=== PATIENT | female | born 1980 | race Caucasian/White ===

== ENCOUNTER 2016-12-04 17:14 | Inpatient (IN) | payer OTHER ==
--- NOTE | ~2016-12-04 | US67 ---
[facility] A Service of [facility] & [facility] RADIOLOGY TEXT RESULTS PATIENT: IMELDA NELSON LOCATION: C2A 238-01 : 81 UNIT #: [id number] AGE: [address]: Get Sadler MD SEX: F ORDER DR: [id number] [facility] [address] [facility]. [place], [place] [address] [id number] MR#: [id number] Acc #: [id number] NAME: IMELDA NELSON : 1980 SEX: F STUDY DATE/TIME: 12/05/2016 8:09 UNIT: C2A ROOM: [facility] STUDY DESCRIPTION: US Gallbladder Attending Physician: Get Sadler M.D. Ordering Physician: Maria Alejandra Orozco M.D. MEDICAL IMAGING REPORT This report is preliminary unless electronic signature is present EXAM Gallbladder ultrasound 12/05/2016 INDICATIONS Right upper quadrant pain for a few months worsening symptoms, hypertension. No relevant surgical history. TECHNIQUE Sonographic imaging right upper quadrant was performed. Correlation is made with CT 12/04/2016. FINDINGS The pancreas was obscured by bowel gas and not seen or evaluated. Survey images of the liver demonstrate no focal mass or intrahepatic ductal dilatation or ascites. Liver measures 18.6 cm long axis. Portions of the liver were obscured by an inadequate sonographic window. Right kidney nonobstructed, measuring 12.3 cm long axis. The gallbladder demonstrates a wall echo shadow complex most characteristic of a gallbladder filled with stones. No sonographic Perez's sign was described by the technologist. The gallbladder wall is not well visualized or assessed given the wall echo shadow complex but demonstrated wall thickening on CT 12/04/2016 and in the setting of right upper quadrant pain the constellation of findings on imaging is most characteristic of acute cholecystitis until proven otherwise. Extrahepatic common bile duct measures about 5 mm. IMPRESSION 1. Wall echo shadow complex most characteristic of a gallbladder filled with stones. In the setting of right upper quadrant pain and abnormal CT findings demonstrating wall thickening of the gallbladder these findings are most characteristic of acute cholecystitis until proven otherwise. [facility] A Service of [facility] & [facility] RADIOLOGY TEXT RESULTS PATIENT: IMELDA NELSON LOCATION: [facility] 238-01 : 81 UNIT #: [id number] AGE: [address]: Get Sadler MD SEX: F ORDER DR: 2. No intra or extrahepatic biliary ductal dilatation. 3. Pancreas not well visualized or assessed. Dictated by... Kiel Jasso M.D. THIS IS AN ELECTRONICALLY VERIFIED REPORT Kiel Jasso M.D. at 12/05/2016 1:12 PM Jose TD: 12/05/2016 08:53 JOB #: [id number] MEDICAL IMAGING REPORT COPY
--- NOTE | ~2016-12-04 | OR ---
Unit #: [id number] #: [id number] Patient: IMELDA NELSON [id number] [address] [place], [place] [address] [id number] I MR#: [id number] NAME: IMELDA NELSON ROOM: 238 Date of Procedure: 12/07/2016 Admission Date: 12/05/2016 Surgeon: Kimani Garrison M.D. : 1980 Attending Physician: Get Sadler M.D. Primary Care Physician: Primary Care Physician No OPERATIVE REPORT PRIMARY CARE PHYSICIAN Maria Alejandra Orozco M.D. and Get Sadler M.D. PREOPERATIVE DIAGNOSES The patient presented with history of abnormal LFTs and upper abdominal pain. PROCEDURE PERFORMED Upper gastrointestinal endoscopy. POSTOPERATIVE DIAGNOSES The entire stomach and duodenal bulb were packed with solid food from top to bottom. The fact that the patient was intubated is important. The underlying mucosa and the stomach therefore could not be examined. The duodenal bulb, second, and third part of duodenum however normal as was well as esophagus. RECOMMENDATIONS The patient will be proceeded with an ERCP provided we get visibility of the ampullary area and not obscured by food. SEDATION General anesthesia. DESCRIPTION OF PROCEDURE Following detailed explanation of the potential risks and complications of an upper endoscopy, namely perforation, bleeding, and complication related to sedation, the patient was brought to the main OR and laid in the left semiprone position. Lubricated tip of the Olympus video upper endoscope was passed through the bite block into the proximal esophagus under direct vision. The entire esophageal mucosa was examined and appeared normal. Z-line was nicely demarcated, there being no esophagitis or hiatus hernia. The scope was then advanced into the gastric cavity and the latter was insufflated. Mucosa of the fundus, body, and antrum was examined. The patient was noted to have large amount of solid food bezoar filling the entire stomach. Pylorus was intubated with visualization of the duodenal bulb and second and third part of duodenum. The food bezoar extended into the duodenal bulb and second part of duodenum. Underlying minimal mucosa that was examined was normal. The scope was then withdrawn in the gastric cavity and on retroflexion, extensive bezoar was seen. The scope was then withdrawn in the distal esophagus. The entire esophageal mucosa was examined all the way up to pharynx. No additional findings were noted. Unit #: [id number] #: [id number] Patient: IMELDA NELSON Dictated by... Ho Bautista/alfred TD: 12/07/2016 12:11 JOB #: [id number] CC: Get Sadler M.D. OPERATIVE REPORT X Kimani Garrison MD X PROCEDURE OPERATIVE NOTE
--- NOTE | ~2016-12-04 | CR84 ---
[facility] A Service of [facility] & [facility] RADIOLOGY TEXT RESULTS PATIENT: IMEDLA NELSON LOCATION: A 238-01 : 81 UNIT #: [id number] AGE: [address]: Get Sadler MD SEX: F ORDER DR: [id number] [facility] [address] [facility]. [place], [place] [address] [id number] I MR#: [id number] #: [id number] NAME: IMELDA NELSON : 1980 SEX: F STUDY DATE/TIME: 12/07/2016 9:50 UNIT: [facility] ROOM: [facility] STUDY DESCRIPTION: CR ERCP Biliary and Pancr SI Attending Physician: Get Sadler M.D. Ordering Physician: Kimani Garrison M.D. Primary Care Physician: Primary Care Physician No MEDICAL IMAGING REPORT This report is preliminary unless electronic signature is present EXAM ERCP interpretation only INDICATIONS 36-year-old female with history of cholecystitis and cholelithiasis. FINDINGS Fluoro time was 1.16 minutes. 9 images were submitted. The study demonstrates injection of the common bile duct. A balloon sweeping was performed. A sphincterotomy was also performed. Please refer to ERCP report for complete detail. Dictated by... Frederick Elias M.D. THIS IS AN ELECTRONICALLY VERIFIED REPORT Frederick Elias M.D. at 12/08/2016 7:41 AM ARS/psc TD: 12/07/2016 17:09 JOB #: [id number] MEDICAL IMAGING REPORT COPY
--- NOTE | ~2016-12-04 | CO ---
Unit #: [id number] #: [id number] Patient: IMELDA NELSON [id number] [address] [address] [id number] I MR#: [id number] NAME: IMELDA NELSON ROOM: 238 Age: 36 Sex: F Admission Date: 12/04/2016 : 1980 Attending Physician: Get Sadler M.D. Primary Care Physician: No Primary Care Physician Consultation Date: 12/05/2016 CONSULTATION REPORT HISTORY OF PRESENT ILLNESS Ms. Nelson is a 36-year-old white female with jaundice and midepigastric/right upper quadrant pain radiating to her back. She had a CT scan, which showed questionable acute cholecystitis but no stones and no dilated ducts, but her bilirubin was 15 along with other elevated liver function test. There was no ductal dilatation. An ultrasound is pending. She has also obtained a consultation for GI medicine doctors. 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 She has a history of hypertension, seizure disorder, psychiatric history. She has had substance abuse in the past. She has had previous tubal ligation, hernia repair. MEDICATIONS Listed per nurses' notes. ALLERGIES Sulfa and cephalosporins. SOCIAL HISTORY She is a 9-pdzw-yhr-day smoker and does drink alcohol. PHYSICAL EXAMINATION GENERAL: Cooperative, alert white female. No real acute distress. ENT: Jaundice. CHEST: Clear to auscultation and percussion. CARDIAC: The rhythm is regular. ABDOMEN: Soft. No real tenderness. No significant peritoneal signs at present. No distention. IMPRESSION This patient most likely has some type of hepatitis or liver failure reaction. She could have occult malignancy. I do not believe she has gallstone jaundice. We will follow her very closely. She does hot need gallbladder surgery at present. Dictated by... Ho Mathews/tamara Unit #: [id number] #: [id number] Patient: IMELDA NELSON TD: 12/05/2016 12:34 JOB #: [id number] CONSULTATION REPORT X Moe Jenkins MD CONSULTATION REPORT
--- NOTE | ~2016-12-04 | OR ---
Unit #: [id number] #: [id number] Patient: IMELDA NELSON [id number] [address] [place], [place] [address] [id number] I MR#: [id number] NAME: IMELDA NELSON ROOM: 238 Date of Procedure: 12/07/2016 Admission Date: 12/05/2016 Surgeon: Kimani Garrison M.D. : 1980 Attending Physician: Get Sadler M.D. OPERATIVE REPORT PREOPERATIVE DIAGNOSES The patient presented with a history of elevated LFTs and overall picture consistent with acute hepatitis. She does take multitude of psychotropic medications for depression and anxiety from her psychiatrist. In addition, she is on methadone. The purpose of the procedure is to look for any common bile duct stones as the picture is somewhat complicated. It is noteworthy she does not have any biliary ductal dilation and does have cholelithiasis and changes of cholecystitis suggested by CAT scan and ultrasound. HIDA scan in this situation is useless, because of the abnormal LFTs. PROCEDURES PERFORMED Endoscopic retrograde cholangiopancreatography and sphincterotomy. POSTOPERATIVE DIAGNOSES 1. The patient had food bezoar filling up the entire stomach. This is most likely related to underlying her medications that include multitude of psychotropic medications that will delay the gastric emptying including methadone. 2. The common bile duct was however normal 5 mm in size throughout. After a limited sphincterotomy, the duct was swept with a 9- to -12 mm retrieval balloon multiple times at 9 and 10 mm pressures. The cystic duct could not be opacified on occlusion cholangiogram and therefore one cannot comment on the cystic duct and gallbladder based upon the study. 3. No attempt was made to cannulate the pancreatic duct. RECOMMENDATIONS 1. The patient does have cholelithiasis and upper abdominal pain. This could be from a combination of gallbladder pain as well as pain from gastroparesis. 2. If the laparoscopic cholecystectomy is planned tomorrow, suggest obtaining a liver biopsy at the same time. 3. I strongly feel that the patient's underlying problem does seem to be acute hepatitis whether it is percutaneous or drug induced, it is hard to pinpoint as the studies are still pending. SEDATION Used general anesthesia in the main OR. DESCRIPTION OF PROCEDURE Following detailed explanation of potential risks and complications of an ERCP, namely perforation, bleeding, complication related to sedation, and Unit #: [id number] #: [id number] Patient: IMELDA NELSON pancreatitis, the patient was laid in left semiprone position. A lateral-viewing duodenoscope was advanced through the oral cavity into the esophagus and advanced into the stomach. It is noteworthy that the patient did have stomach full of lot of solid food, but she was intubated with secured airway. Pylorus was intubated with visualization of the normal duodenal bulb and second and third part of the duodenum. Upon shortening the scope, major papilla and ampullary was visualized en face. Using sphincterotome and guidewire based technique, common bile duct was cannulated easily and the contrast cholangiogram was obtained, which showed normal bile duct about 5 mm in size throughout; however, cystic duct could not be opacified on cholangiogram. We then did a limited sphincterotomy. The duct was swept with a 9 and 10 mm retrieval balloon multiple times. The occlusion cholangiogram did not opacify the cystic duct or the gallbladder. No stones or debris were seen or delivered. The scope and the accessories were then withdrawn. The patient returned to the recovery area. She tolerated the procedure without any postprocedure complications. Dictated by... Ho Bautista/alfred TD: 12/07/2016 12:27 JOB #: [id number] Moe Jenkins M.D. OPERATIVE REPORT X Kimani Garrison MD X PROCEDURE OPERATIVE NOTE
--- NOTE | ~2016-12-04 | HP ---
Unit #: [id number] #: [id number] Patient: IMELDA NELSON [id number] [address] [place], [place] [address] [id number] I MR#: [id number] NAME: IMELDA NELSON ROOM: 238 Age: 36 Sex: F Admission Date: 12/04/2016 : 1980 Attending Physician: Maria Alejandra rOozco M.D. Primary Care Physician: No Primary Care Physician HISTORY AND PHYSICAL CHIEF COMPLAINT Painful jaundice. HISTORY OF PRESENT ILLNESS This pleasant, 36-year-old female with migraines, bipolar disorder, who is in the methadone clinic, was transferred from [facility] for painful jaundice. The patient states that two weeks ago she began to experience nausea along with sensation of acid reflux. The patient had an episode of fairly severe epigastric pain radiating to her back last week. The patient has also noted increasing upper abdominal discomfort with pale stools and dark urine. The patient developed a temperature of 102.3 a few days ago for which she took Tylenol. Yesterday, her family noticed that she was jaundiced. She went to [facility] emergency department where she was found to have a bilirubin of 14.8. Alkaline phosphatase was 418. However, AST and ALT were also significantly elevated. The patient denies history of liver disease or any injectable drug use in the past. He has not been taking a lot of Tylenol. A CT scan was performed which was consistent with cholecystitis but without definite gallstones seen. In the ER, she was treated with IV fluids, Zofran, lactulose, Levaquin and Flagyl, referred for admission. On examination, she is fairly tender in the right upper quadrant. PAST MEDICAL HISTORY 1. Migraine headaches. 2. PTSD and anxiety along with bipolar disorder. 3. Hypertension. 4. Previous opiate addiction now in the methadone clinic. However, the patient denies ever using injectable drugs. 5. BTL. 6. Hernia repair. SOCIAL HISTORY The patient is living with her mother. She smokes about a pack per day of tobacco. She does not drink alcohol except on a rare basis. FAMILY HISTORY Negative for liver or gallbladder disease. ALLERGIES Sulfa and Keflex, although the patient states that she is able to take penicillin. Unit #: [id number] #: [id number] Patient: IMELDA NESLON HOME MEDICATIONS 1. Cymbalta 60 mg daily. 2. Elavil 50 mg q.h.s. 3. Neurontin 600 mg t.i.d. 4. Clonidine 0.1 mg daily. 5. Klonopin 1 mg q.i.d. 6. Methadone 70 mg at noon every day. REVIEW OF SYSTEMS Notable for abdominal pain, nausea, acid reflux, feeling unwell, recent fever, migraines, psychiatric problems as dictated above, hypertension, above-mentioned surgeries, tobacco abuse. All other systems were reviewed and otherwise negative. PHYSICAL EXAMINATION GENERAL APPEARANCE: A pleasant, 36-year-old female who currently is in no acute distress. She does appear to be deeply jaundiced. She is afebrile. Pulse 74. Respirations 16. Blood pressure 121/67. HEENT: Eyes: PERRLA. Extraocular muscles are intact. Scleral icterus is noted. Pharynx is benign. NECK: Supple without adenopathy or thyromegaly. CHEST: Clear. CARDIAC: Normal S1, S2 without S3, S4 or murmur. ABDOMEN: Bowel sounds are present. The patient is most tender in the right upper quadrant. No rebound, guarding. No hepatosplenomegaly or masses. EXTREMITIES: Without edema. Pedal pulses are present. NEUROLOGIC: The patient is awake, alert, oriented. Cranial nerves are intact. Equal strength throughout. DIAGNOSTIC STUDIES LABORATORY: Hematocrit 43.8, normal white count and platelet count. INR is 1.3. SMA-12: Bilirubin 14.8, AST 1,800, ALT 600, alkaline phosphatase 400. Normal lipase. Ammonia level 61. Acetaminophen, salicylate level negligible. Hepatitis profile is pending. Urinalysis unremarkable. Urine tox screen positive for TCA, benzodiazepine and methadone, which are prescribed. Also positive for THC. IMAGING: CT scan of the abdomen shows cholelithiasis. ASSESSMENT 1. Painful jaundice. Likely, this represents a common bile duct stone and cholecystitis. However, AST and ALT are out of proportion to what I usually see for obstructive jaundice. Rule out additional hepatitis. 2. Previous history of opiate abuse. The patient is currently in the methadone clinic. She denies any injectable drug use in the past. 3. Hypertension. 4. Bipolar disorder, anxiety and depression. 5. Migraine headaches. PLAN 1. Gallbladder ultrasound. 2. Zosyn. 3. IV fluids and supportive treatment. 4. Hepatitis profile is pending. 5. GI and Surgical consultation. 6. SCDs for DVT prophylaxis. Unit #: [id number] #: [id number] Patient: IMELDA NELSON Dictated by Maria Alejandra Orozco M.D. AML/bd TD: 12/05/2016 05:59 JOB #: [id number] HISTORY AND PHYSICAL X Maria Alejandra Orozco MD X HISTORY AND PHYSICAL
--- NOTE | ~2016-12-04 | DS ---
Unit #: [id number] #: [id number] Patient: IMELDA NELSON [id number] [address] [place], [place] [address] [id number] I MR#: [id number] NAME: IMELDA NELSON ROOM: 238 Age: 36 Sex: F Admission Date: 12/05/2016 : 1980 Discharge Date: 12/10/2016 Attending Physician: Get Sadler M.D. Primary Care Physician: Primary Care Physician No DISCHARGE SUMMARY This is Nasreen Triana PA-C dictating for Dr. Get Sadler. CONSULTANTS Dr. Garrison with [facility], Dr. Yeboah, and Dr. Mahmood. PROCEDURES None. DISCHARGE DIAGNOSIS Drug seeking behavior. The patient was seen DIAGNOSTIC STUDIES IMAGING STUDIES: Consist of CT of abdomen and pelvis on 12/04/2016, impression, findings consistent with acute cholecystitis. No definite gallstones or biliary ductal dilation is seen. Gallbladder ultrasound on 12/05/2016, findings, syic-lyfx-cxekin complex most characteristic of gallbladder filled with stones in the setting of right upper quadrant pain and abnormal CT findings demonstrating wall thickening of the gallbladder. These findings are most characteristic of acute cholecystitis no intra or extrahepatic biliary ductal dilation. pancreas is not well visualized or assessed. ERCP was done by Dr. Garrison on 12/07/2016. Please refer to his full dictated report. LABORATORY RESULTS: On the day of discharge, the patient's lab include a BMP with glucose of 109, BUN 5, sodium 134, potassium 5.4, chloride 99, CO2 of 33, calcium is 9.0, total protein was 6.0, albumin was 2.9, total bilirubin 3.6, this has been trending down. She came in at 9.5, then trended down to 6.4 to 4.1 and today is 3.6. Her liver enzymes, her AST came in at 427 and continue to trend down to 209. Today was 124. ALT trending down as well, it came in at 418 and down to 258 and down to 190, and today was at 115. CBC with WBC of 7.2, RBC 4.78, hemoglobin 13.3, hematocrit 42.6, MCV is 89.2, MCH is 20.5, MCHC is 31.9, RDW is 16.7, platelets 310, MPV is 9.1. The patient did have blood culture with no growth at this time. In summary, the patient did have food stomach likely due to her psychotropic medications, which causes delay of the gastric emptying including methadone. The common bile duct however is normal in size measuring 55 mm and normal throughout. A sphincterotomy was done by Dr. He felt that the patient's overall symptoms likely due to acute hepatitis that is undetermined at this point. Unit #: [id number] #: [id number] Patient: IMELDA ENLSON PHYSICAL EXAMINATION GENERAL APPEARANCE: This is a 36-year-old female, who was at the bedside, in no apparent distress. VITAL SIGNS: Temperature of 97.8, pulse of 56, respiratory rate of 18, blood pressure 139/93, the patient was oxygenating while on room air. EYES: Extraocular motions were intact. Pupils were equally reactive to light and accommodation. Icterus was noted. . NECK: Supple without adenopathy or thyromegaly. CHEST: Clear to auscultation bilaterally. CARDIAC: Normal S1, S2 without S3, S4, or murmur. ABDOMEN: Bowel sound present. Soft, nontender, nondistended. No rebound. No guarding. No hepatosplenomegaly or masses appreciated. EXTREMITIES: Without edema. Pedal pulses are present. HOSPITAL COURSE The patient is a 36-year-old female with past medical history of migraine, bipolar disorder, chronic pain seen at the methadone clinic and was transferred from [facility] for painful jaundice. She states that 2 weeks prior to hospitalization, she began to experience some nausea as well as sensation of acid reflux. The patient had episode severe epigastric pain radiating to her back with prior to hospitalization, she was also noted to have increasing upper abdominal discomfort with pale stools and dark urine. The patient developed temperature of 102.3. yesterday family noticed she had jaundice and brought her to the [facility] Department where she was found to have bilirubin of 14.8 and alkaline phosphatase was 418. However, AST and ALT were also significantly elevated. The patient had denied history of liver disease or any injectable drug use in the past. She has not been taking a lot of Tylenol. A CT was performed, which was consistent with cholecystitis, but without definite gallstones seen in the emergency department. She was treated with IV fluids, Zofran, lactulose, Levaquin, Flagyl, and was admitted to [facility]. With regard to painful jaundice, we had ordered an acute hepatitis panel, which is still pending at this time. She was seen in consultation with Gastroenterology and General Surgery, who was treated with conservative management at first, but due to her persistent pain, bladder ultrasound was done with findings stated above. An ERCP was done by Dr. Garrison with findings as stated above. Again, please refer to his full dictated summary for full details. She was seen in consultation with Surgery on the day of assessment, it was felt that the patient had incidental gallstones and likely most of her problems are with the hepatitis possibly acute hepatitis and did not felt that laparoscopic cholecystectomy was needed at this time. She will follow up with surgery outpatient for any further needs. DISCHARGE CONDITION Stable. DISCHARGE FOLLOWUP The patient is to follow up with surgery with next week for further recommendations. Follow up with primary care physician within 1 to 2 weeks. DISCHARGE MEDICATIONS Include gabapentin to resume her home usage as stated 600 mg orally t.i.d., amitriptyline 50 mg orally at bedtime, Cymbalta 60 mg orally daily, Ambien 5 mg orally at bedtime, nicotine 21 mg transdermally Unit #: [id number] #: [id number] Patient: IMELDA NELSON iyvw-hqd-wwgnzdw, Klonopin 1 mg orally every 6 hours as needed for anxiety, clonidine 0.1 mg patch daily, methadone she again will go back methadone clinic to continue to receive her methadone there, Levaquin 750 mg orally for the next 5 days. Dictated by... FRANDY Bertrand M.D. TP/alfred TD: 12/12/2016 01:01 JOB #: [id number] DISCHARGE SUMMARY X X DISCHARGE SUMMARY
--- NOTE | ~2016-12-04 | CO ---
Unit #: [id number] #: [id number] Patient: IMELDA NELSON [id number] [address] [place], [place] [address] [id number] I MR#: [id number] NAME: IMELDA NELSON ROOM: 238 Age: 36 Sex: F Admission Date: 12/05/2016 : 1980 Attending Physician: Get Sadler M.D. Consultation Date: 12/05/2016 CONSULTATION REPORT REASON FOR CONSULTATION Possible hepatitis, abnormal LFTs. HISTORY OF PRESENT ILLNESS Ms. Sung is a 36-year-old white female who has been admitted with jaundice and right upper quadrant and epigastric pain. The patient was found to have a bilirubin of 15 on admission. She denies any history of intravenous drug use, but says she used heroin in the past. There is no history of any weight loss, fever, chills, or rigors. PAST MEDICAL HISTORY Significant for hypertension, seizure disorder, psychiatric history of substance abuse and she is currently on methadone. She has been on methadone in the recent past. PAST SURGICAL HISTORY Included tubal ligation and herniorrhaphy. ALLERGIES Allergic to sulfonamides and cephalosporins. MEDICATIONS These include Cymbalta, Elavil, Neurontin, clonidine, and methadone. FAMILY HISTORY No family history of colon, pancreatic cancer, or liver disease. SOCIAL HISTORY Lives at home with her mother. Smokes a pack of cigarettes a day. Does not drink alcohol except rarely. REVIEW OF SYSTEMS Detailed review of organ systems does not reveal any recent weight loss. No history of fever, chills, or rigors. No history of headache, seizures, chest pain, or syncope. No history of cough, expectoration, or hemoptysis. No history of dysuria, hematuria, or pyuria. No history of focal seizures or extremity weakness. No history of skin rash, aphthous ulcers in the mouth, or reactive arthritis. Rest of review of the organ systems is unremarkable. PHYSICAL EXAMINATION GENERAL: She is comfortable, alert, and oriented; however, she does appear to particularly have slurred speech at the present time. She is eating a substantial meal. Unit #: [id number] #: [id number] Patient: IMELDA NELSON VITAL SIGNS: Stable with a temperature of 97.4, pulse 60 per minute and regular, respiratory rate 16, blood pressure is 104/61. She weighs 160 pounds. She is close to her baseline weight. HEENT: She has no pallor. There is obvious icterus. No lymphadenopathy or peripheral edema. CARDIOVASCULAR: Normal heart sounds. No murmurs on auscultation. LUNGS: Reveal normal breath sounds. Good air entry. ABDOMEN: Soft, there being no area of localized tenderness, rigidity, rebound, or guarding. The patient does have palpable liver about 4 cm below the right costal margin, firm, smooth and nontender. Bowel sounds normal. Hernia sites normal. DIAGNOSTIC STUDIES LABORATORY RESULTS: Shows an unremarkable CBC. INR is 1.2. Serum chemistry shows a BUN and creatinine of 9 and 0.3. Normal electrolytes. Bilirubin of 14.8. Peak AST, ALT, and alkaline phosphatase of 1800, 620, and 418 respectively. Ammonia 61. CLINICAL IMPRESSION The differential diagnosis here includes infectious hepatitis such as hepatitis B and C as well as autoimmune hepatitis. MANAGEMENT PLAN We will order antinuclear antibody, smooth muscle antibody as well as IgM antibodies against Meryl-Mandel virus, herpes simplex virus, and CMV. The results of these need to be followed up in the intermediary clinic at [facility] or at [facility]. The patient is to be discharged from GI standpoint as it will take 4 to 5 days to get these results back. The above plan discussed with the patient. She was reassured. Thank you for asking me to see this pleasant patient. I appreciate the consult. Dictated by... Ho Bautista/alfred TD: 12/06/2016 06:00 JOB #: [id number] CC: Moe Jenkins M.D. CONSULTATION REPORT X Kimani Garrison MD CONSULTATION REPORT
--- NOTE | ~2016-12-04 | CT2 ---
[facility] A Service of [facility] RADIOLOGY TEXT RESULTS PATIENT: IMELDA NELSON LOCATION: C2A 238- : 81 UNIT #: [id number] AGE: [address]: Get Sadler MD SEX: F ORDER DR: [id number] [address] [address] [id number] I MR#: [id number] Acc #: [id number] NAME: IMELDA NELSON : 1980 SEX: F STUDY DATE/TIME: 12/04/2016 18:06 UNIT: SEDOF ROOM: [id number] STUDY DESCRIPTION: CT Abd and Pelv W Cont Attending Physician: Maria Alejandra Orozco M.D. Ordering Physician: Physician Non-Staff Primary Care Physician: No Primary Care Physician MEDICAL IMAGING REPORT This report is preliminary unless electronic signature is present. EXAMINATION CT abdomen and pelvis with contrast. DATE 12/04/2016 HISTORY Possible jaundice. Abdominal tenderness greatest in the right upper quadrant for a few months with nausea today. Inability to eat. Abnormal liver function tests. COMPARISON CT abdomen and pelvis with contrast 10/02/2015. PROCEDURE 5 mL axial images through the abdomen and pelvis after intravenous contrast administration. Enteric contrast was not administered. This CT exam was performed with one or more of the following radiation dose reduction techniques: automatic exposure control, adjustment of mA and/or kV according to patient size, and iterative reconstruction. FINDINGS There is abnormal gallbladder wall thickening and fluid surrounding the gallbladder consistent with acute cholecystitis. No definite gallstones are seen on this examination. No abnormal intrahepatic or extrahepatic biliary ductal dilation is identified. The liver, spleen, pancreas, adrenals and kidneys are within normal limits. Signs of ventral abdominal hernia repair without hernia recurrence. The appendix appears normal. PELVIS FINDINGS: Bilateral tubal ligation clips in place. Urinary bladder and rectum are normal. Tampon is in place within the vagina. [facility] A Service of [facility] RADIOLOGY TEXT RESULTS PATIENT: IMELDA NELSON LOCATION: [place] - : 81 UNIT #: [id number] AGE: [address]: Get Sadler MD SEX: F ORDER DR: Osseous structures are normal. IMPRESSION Findings consistent with acute cholecystitis. No definite gallstones or biliary ductal dilation is seen. Dictated by... Dalia Martines M.D. THIS IS AN ELECTRONICALLY VERIFIED REPORT Dalia Martines M.D. at 12/05/2016 10:07 PM JUAN JOSE/jose TD: 12/05/2016 07:10 JOB #: [id number] MEDICAL IMAGING REPORT
[2016-12-04 16:58] LABS: BASOPHIL# 0.1 X10e3 (0-0.3); BASOPHIL% 0.8 % (0-2.5); EOSINOPHIL# 0.3 X10e3 (0-0.7); EOSINOPHIL% 3.5 % (0.0-7.0); HEMATOCRIT 43.8 % (35.0-45.0); HEMOGLOBIN 14.6 gm/dL (12.0-16.0); LYMPHOCYTE# 2.5 X10e3 (1.0-3.5); LYMPHOCYTE% 29.6 % (17.0-45.0); MEAN CELL VOLUME 87.9 FL (83-96); MEAN CORPUSCULAR HEMOGLOBIN 29.4 PG (28-34); MEAN CORPUSCULAR HGB CONC 33.5 g/dL (30-36); MEAN PLATELET VOLUME 8.9 FL (6.5-11.5); MONOCYTE% 11.5 % (3.0-12.0); NEUTROPHIL# 4.5 X10e3 (1.5-7.1); NEUTROPHIL% 54.6 % (40-75); PLATELET COUNT 292 X10e3 (140-420); RED BLOOD COUNT 4.98 X10e (3.90-5.30); RED CELL DISTRIBUTION WIDTH 16.1 % (11.0-15.5); WHITE BLOOD COUNT 8.3 X10e3 (4.0-10.5)
[2016-12-04 17:04] LABS: URINE SOURCE CLEAN CATCH
[2016-12-04 17:08] LABS: URINE APPEARANCE CLEAR; URINE BILIRUBIN POS (NEG); URINE BLOOD TRACE-INTACT (NEG); URINE COLOR YELLOW; URINE GLUCOSE NEG (NORM); URINE KETONE NEG (NEG); URINE LEUKOCYTE ESTERASE NEG (NEG); URINE NITRATE NEG (NEG); URINE PROTEIN NEG (NEG); URINE UROBILINOGEN 0.2 MG/DL (NORM)
[2016-12-04 17:12] LABS: INR 1.3; PROTHROMBIN TIME (PATIENT) 14.9 SECONDS (9.5-12.4)
[~2016-12-04 17:14] MED LIST: ALPRAZOLAM PO; ALPRAZOLAM1 MG PO; AMBIEN PO; AMBIEN10 MG PO; AMITRYPTYLINE PO; CLEOCIN PO; CLONIDINE PO; CYMBALTA PO; CYMBALTA30 MG PO; DULOXETINE HCL60 MG PO; FLEXERIL PO; KEFLEX PO; KETOPROFEN PO; KLONOPIN PO; LORTAB 10/500 T1 TAB; METHADONE PO; NEURONTIN100 MG PO; SEROQUEL PO; VICODIN 5/1 TAB 5/50 PO; VICODIN 5/500 T1 TAB PO
[2016-12-04 17:17] LABS: AMPHETAMINE NEG (NEG); BARBITURATES NEG (NEG); BENZODIAZEPINES POS (NEG); COCAINE NEG (NEG); MARIJUANA POS (NEG); OPIATES NEG (NEG); TRICYCLIC ANTIDEPRESSANTS POS (NEG); U METHADONE POS (NEG)
[2016-12-04 17:20] LABS: DIFF IND NO
[2016-12-04 17:44] LABS: ALBUMIN SERUM 3.7 g/dL (3.5-5.0); ALKALINE PHOSPHATASE 418 U/L (32-92); ALT (SGPT) 620 U/L (10-40); AST (SGOT) 1816 U/L (10-42); BILIRUBIN,TOTAL 14.8 mg/dL (0.2-2.0); BLOOD UREA NITROGEN 9 mg/dL (9-23); CALCIUM SERUM 8.8 mg/dL (8.4-10.2); CARBON DIOXIDE 26 mmol/L (22-31); CHLORIDE 101 mmol/L (100-111); CREATININE SERUM <0.3 mg/dL (0.6-1.4); GLOM FILT RATE Estimated ABOVE60 mL/min (>60); GLUCOSE FASTING 84 mg/dL (70-110); LIPASE 28 U/L (22-51); POTASSIUM 3.9 mmol/L (3.5-5.1); PROTEIN TOTAL SERUM 7.5 g/dL (6.0-8.3); SODIUM 135 mmol/L (135-145)
[2016-12-04 17:47] LABS: MICRO INDICATED? YES
[2016-12-04 17:53] LABS: URINE RBC 0-2 /[HPF] (0-2); URINE WBC 0-2 /[HPF] (0-5)
[2016-12-04 17:54] LABS: CULTURE INDICATED? NO; URINE BACTERIA NEG (NEG)
[2016-12-05 05:40] LABS: BASOPHIL# 0.1 X10e3 (0-0.3); BASOPHIL% 0.9 % (0-2.5); EOSINOPHIL# 0.4 X10e3 (0-0.7); EOSINOPHIL% 3.7 % (0.0-7.0); HEMATOCRIT 41.7 % (35.0-45.0); HEMOGLOBIN 13.6 gm/dL (12.0-16.0); LYMPHOCYTE# 2.7 X10e3 (1.0-3.5); MEAN CELL VOLUME 88.3 FL (83-96); MEAN CORPUSCULAR HEMOGLOBIN 28.7 PG (28-34); MEAN CORPUSCULAR HGB CONC 32.5 g/dL (30-36); MEAN PLATELET VOLUME 8.9 FL (6.5-11.5); MONOCYTE# 1.5 X10e3 (0-1.0); MONOCYTE% 15.4 % (3.0-12.0); NEUTROPHIL# 5.3 X10e3 (1.5-7.1); PLATELET COUNT 285 X10e3 (140-420); RED BLOOD COUNT 4.73 X10e (3.90-5.30); RED CELL DISTRIBUTION WIDTH 16.7 % (11.0-15.5)
[2016-12-05 06:10] LABS: INR 1.2; PARTIAL THROMBOPLASTIN TIME 36.4 SECONDS (23.5-31.3); PROTHROMBIN TIME (PATIENT) 12.7 SECONDS (9.6-11.5)
[2016-12-05 06:13] LABS: DIFF IND NO
[2016-12-05 06:49] LABS: ALBUMIN SERUM 3.4 g/dL (3.5-5.0); ALKALINE PHOSPHATASE 374 U/L (32-92); ALT (SGPT) 589 U/L (10-40); AST (SGOT) 1648 U/L (10-42); BILIRUBIN,TOTAL 14.5 mg/dL (0.2-2.0); BLOOD UREA NITROGEN 5 mg/dL (9-23); CALCIUM SERUM 8.7 mg/dL (8.4-10.2); CARBON DIOXIDE 29 mmol/L (22-31); CHLORIDE 99 mmol/L (100-111); GLUCOSE FASTING 88 mg/dL (70-110); PROTEIN TOTAL SERUM 6.6 g/dL (6.0-8.3); SODIUM 136 mmol/L (135-145)
[2016-12-05 06:50] LABS: BUN/CREATININE RATIO 16.66; CREATININE SERUM <0.3 mg/dL (0.6-1.4); GLOM FILT RATE Estimated ABOVE60 mL/min (>60)
[2016-12-06 05:42] LABS: HEMATOCRIT 42.3 % (35.0-45.0); HEMOGLOBIN 13.7 gm/dL (12.0-16.0); MEAN CELL VOLUME 89.2 FL (83-96); MEAN CORPUSCULAR HEMOGLOBIN 28.8 PG (28-34); MEAN CORPUSCULAR HGB CONC 32.3 g/dL (30-36); MEAN PLATELET VOLUME 9.2 FL (6.5-11.5); RED BLOOD COUNT 4.74 X10e (3.90-5.30); RED CELL DISTRIBUTION WIDTH 16.2 % (11.0-15.5); WHITE BLOOD COUNT 7.7 X10e3 (4.0-10.5)
[2016-12-06 05:54] LABS: INR 1.1
[2016-12-06 06:27] LABS: ALBUMIN SERUM 3.4 g/dL (3.5-5.0); ALKALINE PHOSPHATASE 345 U/L (32-92); ALT (SGPT) 573 U/L (10-40); AST (SGOT) 1888 U/L (10-42); BILIRUBIN,TOTAL 14.3 mg/dL (0.2-2.0); CALCIUM SERUM 8.7 mg/dL (8.4-10.2); CARBON DIOXIDE 30 mmol/L (22-31); CHLORIDE 101 mmol/L (100-111); CREATININE SERUM 0.3 mg/dL (0.6-1.4); GLOM FILT RATE Estimated ABOVE60 mL/min (>60); GLUCOSE FASTING 106 mg/dL (70-110); MAGNESIUM 1.8 mg/dL (1.6-3.0); POTASSIUM 4.3 mmol/L (3.5-5.1); PROTEIN TOTAL SERUM 6.8 g/dL (6.0-8.3); SODIUM 138 mmol/L (135-145)
[2016-12-06 06:28] LABS: BLOOD UREA NITROGEN <5 mg/dL (9-23); BUN/CREATININE RATIO 16.66
[2016-12-06 06:57] LABS: AMPHETAMINE NEG (NEG); BARBITURATES NEG (NEG); BENZODIAZEPINES POS (NEG); COCAINE NEG (NEG); MARIJUANA POS (NEG); OPIATES POS (NEG); TRICYCLIC ANTIDEPRESSANTS POS (NEG); U METHADONE POS (NEG)
[2016-12-07 06:48] LABS: ALBUMIN SERUM 2.9 g/dL (3.5-5.0); ALKALINE PHOSPHATASE 263 U/L (32-92); ALT (SGPT) 418 U/L (10-40); AST (SGOT) 1091 U/L (10-42); BILIRUBIN,TOTAL 9.5 mg/dL (0.2-2.0); BLOOD UREA NITROGEN 5 mg/dL (9-23); BUN/CREATININE RATIO 8.33; CALCIUM SERUM 8.4 mg/dL (8.4-10.2); CARBON DIOXIDE 29 mmol/L (22-31); CHLORIDE 103 mmol/L (100-111); CREATININE SERUM 0.6 mg/dL (0.6-1.4); GLOM FILT RATE Estimated ABOVE60 mL/min (>60); GLUCOSE FASTING 121 mg/dL (70-110); POTASSIUM 3.8 mmol/L (3.5-5.1); PROTEIN TOTAL SERUM 5.8 g/dL (6.0-8.3); SODIUM 138 mmol/L (135-145)
[2016-12-08 09:40] LABS: HEMOGLOBIN 12.1 gm/dL (12.0-16.0); MEAN CELL VOLUME 88.5 FL (83-96); MEAN CORPUSCULAR HEMOGLOBIN 28.9 PG (28-34); MEAN CORPUSCULAR HGB CONC 32.7 g/dL (30-36); MEAN PLATELET VOLUME 9.1 FL (6.5-11.5); RED BLOOD COUNT 4.18 X10e (3.90-5.30); RED CELL DISTRIBUTION WIDTH 16.6 % (11.0-15.5); WHITE BLOOD COUNT 8.7 X10e3 (4.0-10.5)
[2016-12-08 10:27] LABS: ALBUMIN SERUM 2.9 g/dL (3.5-5.0); ALKALINE PHOSPHATASE 231 U/L (32-92); ALT (SGPT) 258 U/L (10-40); AMYLASE 13 U/L (0-46); AST (SGOT) 427 U/L (10-42); BILIRUBIN,TOTAL 6.4 mg/dL (0.2-2.0); CALCIUM SERUM 8.3 mg/dL (8.4-10.2); CARBON DIOXIDE 27 mmol/L (22-31); CHLORIDE 101 mmol/L (100-111); CREATININE SERUM 0.6 mg/dL (0.6-1.4); GLOM FILT RATE Estimated ABOVE60 mL/min (>60); GLUCOSE FASTING 165 mg/dL (70-110); LIPASE 18 U/L (22-51); POTASSIUM 3.3 mmol/L (3.5-5.1); PROTEIN TOTAL SERUM 5.8 g/dL (6.0-8.3); SODIUM 135 mmol/L (135-145)
[2016-12-08 10:28] LABS: BLOOD UREA NITROGEN <5 mg/dL (9-23); BUN/CREATININE RATIO 8.33
[2016-12-09 07:17] LABS: ALBUMIN SERUM 2.8 g/dL (3.5-5.0); ALKALINE PHOSPHATASE 207 U/L (32-92); ALT (SGPT) 190 U/L (10-40); AST (SGOT) 209 U/L (10-42); BLOOD UREA NITROGEN 5 mg/dL (9-23); BUN/CREATININE RATIO 8.33; CALCIUM SERUM 8.8 mg/dL (8.4-10.2); CARBON DIOXIDE 32 mmol/L (22-31); CHLORIDE 100 mmol/L (100-111); CREATININE SERUM 0.6 mg/dL (0.6-1.4); GLOM FILT RATE Estimated ABOVE60 mL/min (>60); GLUCOSE FASTING 121 mg/dL (70-110); PROTEIN TOTAL SERUM 5.8 g/dL (6.0-8.3); SODIUM 138 mmol/L (135-145)
[2016-12-09 07:18] LABS: BILIRUBIN,TOTAL 4.1 mg/dL (0.2-2.0)
[2016-12-10 05:00] LABS: HEMATOCRIT 42.6 % (35.0-45.0); HEMOGLOBIN 13.6 gm/dL (12.0-16.0); MEAN CELL VOLUME 89.2 FL (83-96); MEAN CORPUSCULAR HEMOGLOBIN 28.5 PG (28-34); MEAN CORPUSCULAR HGB CONC 31.9 g/dL (30-36); MEAN PLATELET VOLUME 9.1 FL (6.5-11.5); RED BLOOD COUNT 4.78 X10e (3.90-5.30); RED CELL DISTRIBUTION WIDTH 16.7 % (11.0-15.5); WHITE BLOOD COUNT 7.2 X10e3 (4.0-10.5)
[2016-12-10 06:11] LABS: ALBUMIN SERUM 2.9 g/dL (3.5-5.0); ALKALINE PHOSPHATASE 200 U/L (32-92); ALT (SGPT) 150 U/L (10-40); AST (SGOT) 124 U/L (10-42); BILIRUBIN,TOTAL 3.6 mg/dL (0.2-2.0); BLOOD UREA NITROGEN 5 mg/dL (9-23); BUN/CREATININE RATIO 5.55; CARBON DIOXIDE 33 mmol/L (22-31); CHLORIDE 99 mmol/L (100-111); CREATININE SERUM 0.9 mg/dL (0.6-1.4); GLOM FILT RATE Estimated ABOVE60 mL/min (>60); GLUCOSE FASTING 109 mg/dL (70-110); POTASSIUM 5.4 mmol/L (3.5-5.1); SODIUM 134 mmol/L (135-145)
[2016-12-10] MEDS ORDERED: NICOTINE T1 PATCH .2 TOP (10:01)
[2016-12-10] MEDS ORDERED: LEVAQUIN750 MG PO (10:01)
[2016-12-10 15:07] LABS: E-B VIRUS IGG AB 3.57 (<=0.90); E-B VIRUS IGM AB <=0.90 (<=0.90)
[2016-12-10 20:09] LABS: HA AB IGM (HEPPAN) Nonreactive (Nonreactive); HB CORE AB IGM (HEPPAN) Nonreactive (Nonreactive); HB S AG (HEPPAN) Nonreactive (Nonreactive); HEP C AB (HEPPAN) Reactive (Nonreactive)
[2016-12-10 21:13] LABS: ANA SCREEN Positive (Negative); ANA TITER (ANA) 1:40 (Negative); ANA TITER COMMENT Has been added (()); NUCLEAR PATTERN (ANA) Homogeneous (())
[2016-12-11 17:45] LABS: HIV1 LOG COPIES/ML <1.30 (<1.30); HIV1COPIES/ML <20 (<20)
[2016-12-11 21:30] LABS: CYTOMEGALOVIRUS IGG AB 3.92 (<=0.90); CYTOMEGALOVIRUS IGM AB 0.4 (())
== END 2016-12-10 11:09 | disposition home or self-care (01) | DRG 445 ==
LOC: SED 17:14 → C2A 12-05 01:40
PROVIDERS: Internal Medicine; Internal Medicine Gastroenterology; Nurse Practitioner; Physician Assistant
PROC: 0F798ZZ Dilation of Common Bile Duct, Via Natural or Artificial Opening Endoscopic (ICD-10-PCS; principal; 2016-12-07 10:00)
PROC: 0DJ08ZZ Inspection of Upper Intestinal Tract, Via Natural or Artificial Opening Endoscopic (ICD-10-PCS; 2016-12-07 10:00)
DX: K80.00 Calculus of gallbladder with acute cholecystitis without obstruction (principal); B17.9 Acute viral hepatitis, unspecified; T18.2XXA Foreign body in stomach, initial encounter; T18.3XXA Foreign body in small intestine, initial encounter; R17 Unspecified jaundice; F11.20 Opioid dependence, uncomplicated; K31.84 Gastroparesis; I10 Essential (primary) hypertension; G43.909 Migraine, unspecified, not intractable, without status migrainosus; F43.10 Post-traumatic stress disorder, unspecified; F41.9 Anxiety disorder, unspecified; F17.210 Nicotine dependence, cigarettes, uncomplicated; Z88.2 Allergy status to sulfonamides; F32.9 Major depressive disorder, single episode, unspecified; Z98.51 Tubal ligation status; G40.909 Epilepsy, unspecified, not intractable, without status epilepticus; G89.4 Chronic pain syndrome; Z76.5 Malingerer [conscious simulation]
CPT/HCPCS: 36415; 74177; 74330; 76705; 80053; 80074; 80307; 81003; 82105; 82140; 82150; 83516; 83690; 83735; 84703; 85025; 85027; 85610; 85730; 86038; 86039; 86301; 86592; 86644; 86645; 86665; 86695; 86696; 87040; 87522; 87536; 99285; G0480; J0330; J1610; J1956; J2060; J2270; J2405; J2543; J2550; J3010; Q9967

== ENCOUNTER 2016-12-21 17:37 | Inpatient (IN) | payer OTHER ==
--- NOTE | ~2016-12-21 | OR ---
Unit #: [id number] #: [id number] Patient: IMELDA NELSON [id number] [address] [place], [place] [address] [id number] I MR#: [id number] NAME: IMELDA NELSON ROOM: 464 Date of Procedure: 12/21/2016 Admission Date: 12/21/2016 Surgeon: Delvis Ramírez Jr., M.D. : 1980 Attending Physician: Darion Mahmood III, M.D. OPERATIVE REPORT INDICATION FOR PROCEDURE The patient is a 36-year-old white female, who has been having intermittent symptoms of biliary colic. She recently was in the hospital with what appeared to be acute hepatitis. Since then, her liver function test of all come back to normal basically and it is felt that she need a laparoscopic cholecystectomy. She continues to have fatty food intolerance and intermittent right upper quadrant pain. PREOPERATIVE DIAGNOSIS Cholecystitis with cholelithiasis. POSTOPERATIVE DIAGNOSIS Cholecystitis with cholelithiasis, noting subacute cholecystitis. ANESTHESIA General with endotracheal intubation, 0.5% Marcaine with epinephrine locally to the port sites. PHONE TECHNICIAN Dr. Yeboah. PROCEDURES PERFORMED Laparoscopic cholecystectomy with lysis of adhesions. DESCRIPTION OF PROCEDURE The patient was positioned in the supine position. After being anesthetized and intubated, was prepped and draped in routine fashion for laparoscopic cholecystectomy. A small supraumbilical incision was made approximately a centimeter in length and this was carried down to the fascia. The fascia and umbilicus were lifted with a towel clip, and a Veress needle was introduced into the abdomen. The abdomen was then inflated with CO2 gas. A 5-mm port was introduced in the abdomen followed by the camera. There was no evidence of any injury related to introduction of the port of the Veress needle. Brief intra-abdominal exploration was carried out. The patient was noted to have evidence of a chronically inflamed gallbladder with a normal-appearing liver. Two 5-mm ports were placed laterally and an 11-mm port just to the right of the upper midline. The gallbladder was lifted. Multiple adhesions were dissected free by both with hook scissors with sharp dissection as well as blunt dissection. After the gallbladder was freed down to the area of the triangle of Calot, cystic duct was isolated, only approximately 1 to 2 mm in diameter, was hemoclipped x4 and divided approximately a centimeter Unit #: [id number] #: [id number] Patient: IMELDA NELSON from its junction with the common duct. The cystic artery was identified, hemoclipped x3, and divided. There was additional small vessel, which was hemoclipped and divided. The gallbladder was taken from its bed with the hook cautery using a current of 20 and after it was released, it was placed in the EndoCatch bag and brought out through the larger port site, after this port was extended approximately 3 mm. After the gallbladder was removed, it was sent to pathology. The port was placed and subhepatic space checked. A small amount of oozing from the gallbladder bed, which was controlled with the Bovie cautery and after total hemostasis was noted, small amount of blood was removed with a sponge packed into the abdomen and brought out directly. Sponge count was correct x3 after this was removed. The clips on cystic duct and cystic artery were intact with no evidence of any leak or bleeding. After this, the CO2 was expressed from the abdomen. The fascia in the larger port site was approximated using neoClose technique. The ports were removed. There was no evidence of any bleeding from the port sites. The port sites were injected with 0.5% Marcaine with epinephrine locally. The wounds were irrigated after hemostasis achieved with Bovie cautery. Skin edges were approximated with stainless-steel skin clips and skin stapling device. Sterile dressings were applied externally. Estimated blood loss less than 50 mL. The patient received less than 1500 mL of crystalloid solution during the procedure. Sponges and instrument counts were correct x3. No drains used. No complications. The patient was taken to the recovery room with stable vital signs and in satisfactory condition. Dictated by... Delvis Ramírez Jr., M.D. JMB/alfred TD: 12/24/2016 05:23 JOB #: [id number] OPERATIVE REPORT Page 1 of 1 X Delvis Ramírez MD X PROCEDURE OPERATIVE NOTE
--- NOTE | ~2016-12-21 | DS ---
Unit #: [id number] #: [id number] Patient: IMELDA NELSON [id number] [address] [address] [id number] MR#: [id number] NAME: IMELDA NELSON ROOM: 464 Age: 36 Sex: F Admission Date: 12/21/2016 : 1980 Discharge Date: 12/24/2016 Attending Physician: Darion Mahmood III, M.D. DISCHARGE SUMMARY DIAGNOSIS Cholecystitis. PROCEDURE PERFORMED Laparoscopic cholecystectomy. HOSPITAL COURSE The patient is a 35-year-old, who presented with right upper quadrant abdominal pain. She was admitted to the hospital. HIDA scan showed cholecystitis. She underwent laparoscopic cholecystectomy. Postop course uncomplicated. DISPOSITION The patient will be discharged home in good condition. DISCHARGE INSTRUCTIONS She is to follow regular diet as tolerated. Activity levels were discussed. She is to follow up in our office in approximately 10 days. DISCHARGE MEDICATIONS Regular home medications and Phenergan 25 mg q.4 p.r.n. Dictated by... Ho Loo/alfred TD: 12/24/2016 23:55 JOB #: [id number] DISCHARGE SUMMARY Page 1 of 1 X Blade Hills MD X DISCHARGE SUMMARY
--- NOTE | ~2016-12-21 | CO ---
Unit #: [id number] #: [id number] Patient: IMELDA NELSON [id number] [address] [place], [place] [address] [id number] I MR#: [id number] NAME: IMELDA NELSON ROOM: 464 Age: 36 Sex: F Admission Date: 12/21/2016 : 1980 Attending Physician: Darion Mahmood III, M.D. Primary Care Physician: Primary Care Physician No Consultation Date: 12/22/2016 CONSULTATION REPORT HISTORY OF PRESENT ILLNESS The patient is a 36-year-old lady, who presents with less than 24 hour history of diffuse abdominal pain, nonradiating. No fevers. No chills. No nausea or vomiting. Has had anorexia. No change in bowel movements. She is status post ERCP for common bile duct stones. Does have a known history of gallstones. PAST MEDICAL HISTORY She had a history of hypertension, seizures, and psych disorder. PAST SURGICAL HISTORY She had a tubal ligation and umbilical hernia repair. SOCIAL HISTORY Does smoke and drinks on a daily basis. HOME MEDICATIONS Cymbalta, Ambien, amitriptyline, Neurontin, Catapres, Klonopin, methadone. FAMILY HISTORY Negative for GI malignancy. REVIEW OF SYSTEMS No cardiopulmonary complaints at this time. Else, 10 systems reviewed and negative. PHYSICAL EXAMINATION GENERAL: She is awake, alert, appropriate, currently in no distress. VITAL SIGNS: Temperature 98.8, pulse 100, respirations 18, and blood pressure 131/96. HEENT: Unremarkable. NECK: Supple. No JVD. Trachea midline. LUNGS: Clear to auscultation. Bilateral breath sounds symmetric. CARDIOVASCULAR: Regular rate and rhythm. ABDOMEN: Soft. It is diffusely tender, but no rebound. No masses. No point tenderness. No hernias. EXTREMITIES: No clubbing, cyanosis, or edema. DIAGNOSTIC STUDIES LABORATORY RESULTS: Show normal white count. Liver function studies are normal. IMAGING STUDIES: CT scan shows gallstones with thickened gallbladder wall, questionable air over the dome of the liver. Unit #: [id number] #: [id number] Patient: IMELDA NELSON ASSESSMENT Possible cholecystitis. Possible perforated viscus, however, does not appear to be toxic or tender. Likely secondary to endoscopic retrograde cholangiopancreatography. PLAN For HIDA scan, we will reassess. Likely require laparoscopic cholecystectomy at some point in time. Dictated by... Ho Loo/alfred TD: 12/22/2016 22:31 JOB #: [id number] CONSULTATION REPORT Page 1 of 1 X Blade Hills MD X CONSULTATION REPORT
--- NOTE | ~2016-12-21 | CT2 ---
[facility] A Service of [facility] & [facility] RADIOLOGY TEXT RESULTS PATIENT: IMELDA NELSON LOCATION: [facility] 464-01 : [birth year] UNIT #: [id number] AGE: [address]: Darion Mahmood III, MD SEX: F ORDER DR: [id number] [facility] [address] [facility]. [place], [place] [address] [id number] I MR#: [id number] Acc #: [id number] NAME: IMELDA NELSON : 1980 SEX: F STUDY DATE/TIME: 12/21/2016 18:59 UNIT: [facility] ROOM: 4 STUDY DESCRIPTION: CT Abd and Pelv W Cont Attending Physician: Darion Mahmood III, M.D. Ordering Physician: Jun Arauz M.D. Primary Care Physician: No Primary Care Physician MEDICAL IMAGING REPORT This report is preliminary unless electronic signature is present EXAM CT abdomen and pelvis with contrast. HISTORY 36-year-old female, abdominal pain, nausea, vomiting times 12 hours. TECHNIQUE Axial images were performed through the abdomen and pelvis following IV and oral contrast. Multiplanar reconstructed images were reviewed at the work station. This CT exam was performed with one or more of the following radiation dose reduction techniques: automatic exposure control, adjustment of mA and/or kV according to patient size, and iterative reconstruction. FINDINGS Abdomen: Lung bases unremarkable. Liver and spleen appear normal. The gallbladder demonstrates questionable mild gallbladder wall thickening and pericholecystic fluid. This was seen on the patient's recent CT of 12/04/2016, but no definite gallstones. No ductal dilatation. Pancreas, kidneys and adrenal glands are unremarkable. There is some free air in the right subphrenic space, nonspecific. This would imply possible ruptured discus, but no obvious extravasation of contrast or focal inflammatory change seen within the bowel. Stomach, small bowel and colon appear normal. Kidneys and adrenal glands are unremarkable. Pelvis: Bladder, uterus and adnexa appear normal. Tubal ligation clips noted. Visualized lumbar spine and soft tissues unremarkable. IMPRESSION 1. Gallbladder wall thickening and a small amount of pericholecystic fluid suggests possible acalculous cholecystitis. Please note similar findings were seen on CT scan of 12/04/2016. [facility] A Service of [facility] RADIOLOGY TEXT RESULTS PATIENT: IMELDA NELSON LOCATION: C4 464-01 : [birth year] UNIT #: [id number] AGE: [address]: Darion Mahmood III, MD SEX: F ORDER DR: 2. Small amount of air noted in the right subhepatic or subphrenic space. Etiology unclear, but does raise the concern for perforated viscus, but no focal inflammatory process identified. Dictated by... Boyd Elias M.D. THIS IS AN ELECTRONICALLY VERIFIED REPORT Boyd Elias M.D. at 12/22/2016 10:06 AM Kerri TD: 12/22/2016 09:14 JOB #: [id number] MEDICAL IMAGING REPORT Page 1 of 1 COPY
--- NOTE | ~2016-12-21 | NM21 ---
[facility] A Service of [facility] & [facility] RADIOLOGY TEXT RESULTS PATIENT: IMELDA NELSON LOCATION: [facility] 464-01 : [birth year] UNIT #: [id number] AGE: [address]: Darion Mahmood III, MD SEX: F ORDER DR: [id number] [facility] [address] [facility]. [place], [place] [address] [id number] I MR#: [id number] Acc #: [id number] NAME: IMELDA NELSON : 1980 SEX: F STUDY DATE/TIME: 12/22/2016 11:13 UNIT: [facility] ROOM: [facility] STUDY DESCRIPTION: NM Hepatobiliary W GB Attending Physician: Darion Mahmood III, M.D. Ordering Physician: Blade Hills M.D. Primary Care Physician: Primary Care Physician No MEDICAL IMAGING REPORT This report is preliminary unless electronic signature is present EXAM HIDA scan 12/22/2016 HISTORY Sharp epigastric abdominal pain radiating to the back with belching, nausea and vomiting, green loose stools, abdominal bloating symptoms beginning 12/05/2016, cholecystitis. Abnormal CT scan of the abdomen and pelvis 12/21/2016, demonstrating thickened gallbladder wall and pericholecystic fluid. FINDINGS The patient received an intravenous injection of 5.65 mCi of technetium 99m tagged Choletec for hepatobiliary imaging. There is homogeneous distribution of the radiotracer throughout the liver. Biliary and small bowel activity were seen by 15 minutes post injection of the radiopharmaceutical. 15-minute sequential images of the upper abdomen were obtained for 1 hour and delayed images were obtained of the upper abdomen at 90 minutes and 120 minutes post injection of the radiopharmaceutical. No gallbladder activity was identified after 2 hours of imaging. Findings suggest cystic duct obstruction and possible cholecystitis. Clinical correlation is recommended. IMPRESSION Non-visualization of the gallbladder after 2 hours of imaging. Characteristic of cystic duct obstruction and possible cholecystitis. Clinical correlation is recommended. STAT * RESULT Dictated by... [facility] A Service of [facility] & [facility] RADIOLOGY TEXT RESULTS PATIENT: IMELDA NELSON LOCATION: [facility] 464-01 : [birth year] UNIT #: [id number] AGE: [address]: Darion Mahmood III, MD SEX: F ORDER DR: Jim Abebe M.D. THIS IS AN ELECTRONICALLY VERIFIED REPORT Jim Abebe M.D. at 12/23/2016 10:30 AM KRT/to TD: 12/22/2016 13:56 JOB #: [id number] MEDICAL IMAGING REPORT Page 1 of 1 COPY
[2016-12-21 14:59] LABS: URINE SOURCE CLEAN CATCH
[2016-12-21 15:15] LABS: URINE APPEARANCE CLOUDY; URINE BILIRUBIN NEG (NEG); URINE BLOOD NEG (NEG); URINE COLOR YELLOW; URINE GLUCOSE NEG (NEG); URINE KETONE NEG (NEG); URINE LEUKOCYTE ESTERASE TRACE (NEG); URINE NITRATE NEG (NEG); URINE PH 5.5 (5-8); URINE PROTEIN NEG (NEG); URINE SPECIFIC GRAVITY 1.009 (1.003-1.035); URINE UROBILINOGEN 0.2 MG/DL (NEG)
[2016-12-21 15:15] LABS: BASOPHIL# 0.1 X10e3 (0-0.3); BASOPHIL% 0.6 % (0-2.5); EOSINOPHIL# 0.2 X10e3 (0-0.7); EOSINOPHIL% 2.1 % (0.0-7.0); HEMATOCRIT 44.5 % (35.0-45.0); HEMOGLOBIN 14.8 gm/dL (12.0-16.0); LYMPHOCYTE# 3.5 X10e3 (1.0-3.5); LYMPHOCYTE% 33.1 % (17.0-45.0); MEAN CELL VOLUME 87.2 FL (83-96); MEAN CORPUSCULAR HEMOGLOBIN 29.1 PG (28-34); MEAN CORPUSCULAR HGB CONC 33.3 g/dL (30-36); MEAN PLATELET VOLUME 8.5 FL (6.5-11.5); MONOCYTE# 0.7 X10e3 (0-1.0); MONOCYTE% 6.3 % (3.0-12.0); NEUTROPHIL# 6.1 X10e3 (1.5-7.1); NEUTROPHIL% 57.9 % (40-75); PLATELET COUNT 316 X10e3 (140-420); RED CELL DISTRIBUTION WIDTH 15.4 % (11.0-15.5); WHITE BLOOD COUNT 10.5 X10e3 (4.0-10.5)
[2016-12-21 15:18] LABS: CULTURE INDICATED? YES; U HYALINE CASTS AUWI 0-2 /[LPF]; URBCS1 AUWI 0-2 /[HPF] (0-2); URINE BACTERIA AUWI 1+ (NEGATIVE); URINE SQUAMOUS EPITHELIAL CELL MOD /[HPF]
[2016-12-21 15:20] LABS: DIFF IND NO
[2016-12-21 15:42] LABS: ALBUMIN SERUM 4.1 g/dL (3.5-5.0); BILIRUBIN, DIRECT 0.7 mg/dL (0.0-0.2); BILIRUBIN,INDIRECT 0.8 mg/dL (0.0-0.9); BILIRUBIN,TOTAL 1.5 mg/dL (0.2-2.0); CALCIUM SERUM 9.4 mg/dL (8.4-10.2); CREATININE SERUM 0.5 mg/dL (0.6-1.4); GLOM FILT RATE Estimated 125.4 mL/min (>60); PROTEIN TOTAL SERUM 7.8 g/dL (6.0-8.3)
[~2016-12-21 17:37] MED LIST changes: +LEVAQUIN750 MG PO; +NICOTINE T1 PATCH .2 TOP
[2016-12-21 21:11] LABS: BASOPHIL# 0.1 X10e3 (0-0.3); BASOPHIL% 0.7 % (0-2.5); EOSINOPHIL# 0.2 X10e3 (0-0.7); EOSINOPHIL% 2.3 % (0.0-7.0); HEMATOCRIT 41.6 % (35.0-45.0); HEMOGLOBIN 13.7 gm/dL (12.0-16.0); LYMPHOCYTE% 38.2 % (17.0-45.0); MEAN CELL VOLUME 86.7 FL (83-96); MEAN CORPUSCULAR HEMOGLOBIN 28.4 PG (28-34); MEAN CORPUSCULAR HGB CONC 32.8 g/dL (30-36); MEAN PLATELET VOLUME 8.1 FL (6.5-11.5); MONOCYTE# 0.5 X10e3 (0-1.0); MONOCYTE% 6.1 % (3.0-12.0); NEUTROPHIL# 4.1 X10e3 (1.5-7.1); NEUTROPHIL% 52.7 % (40-75); PLATELET COUNT 259 X10e3 (140-420); RED CELL DISTRIBUTION WIDTH 14.6 % (11.0-15.5); WHITE BLOOD COUNT 7.8 X10e3 (4.0-10.5)
[2016-12-21 21:12] LABS: DIFF IND NO
[2016-12-21 21:34] LABS: ALBUMIN SERUM 3.6 g/dL (3.5-5.0); BILIRUBIN,TOTAL 1.7 mg/dL (0.2-2.0); BUN/CREATININE RATIO 11.66; CALCIUM SERUM 8.4 mg/dL (8.4-10.2); CREATININE SERUM 0.6 mg/dL (0.6-1.4); GLOM FILT RATE Estimated 118.1 mL/min (>60); POTASSIUM 3.9 mmol/L (3.5-5.1); PROTEIN TOTAL SERUM 6.9 g/dL (6.0-8.3)
[2016-12-23 05:11] LABS: HEMATOCRIT 38.3 % (35.0-45.0); HEMOGLOBIN 12.6 gm/dL (12.0-16.0); MEAN CORPUSCULAR HEMOGLOBIN 28.5 PG (28-34); MEAN CORPUSCULAR HGB CONC 32.8 g/dL (30-36); RED BLOOD COUNT 4.41 X10e (3.90-5.30); RED CELL DISTRIBUTION WIDTH 14.2 % (11.0-15.5); WHITE BLOOD COUNT 9.6 X10e3 (4.0-10.5)
[2016-12-23 06:50] LABS: ALBUMIN SERUM 3.4 g/dL (3.5-5.0); BILIRUBIN,TOTAL 1.3 mg/dL (0.2-2.0); CALCIUM SERUM 8.7 mg/dL (8.4-10.2); CREATININE SERUM 0.7 mg/dL (0.6-1.4); GLOM FILT RATE Estimated 112.3 mL/min (>60); POTASSIUM 3.2 mmol/L (3.5-5.1); PROTEIN TOTAL SERUM 6.5 g/dL (6.0-8.3)
[2016-12-23 11:26] LABS: HEMATOCRIT 39.2 % (35.0-45.0); HEMOGLOBIN 13.1 gm/dL (12.0-16.0); MEAN CELL VOLUME 86.2 FL (83-96); MEAN CORPUSCULAR HEMOGLOBIN 28.7 PG (28-34); MEAN CORPUSCULAR HGB CONC 33.3 g/dL (30-36); MEAN PLATELET VOLUME 8.8 FL (6.5-11.5); RED BLOOD COUNT 4.55 X10e (3.90-5.30); RED CELL DISTRIBUTION WIDTH 14.7 % (11.0-15.5); WHITE BLOOD COUNT 8.5 X10e3 (4.0-10.5)
[2016-12-23 12:06] LABS: ALBUMIN SERUM 3.6 g/dL (3.5-5.0); BILIRUBIN, DIRECT 0.6 mg/dL (0.0-0.2); BILIRUBIN,INDIRECT 1.1 mg/dL (0.0-0.9); BILIRUBIN,TOTAL 1.7 mg/dL (0.2-2.0); CREATININE SERUM 0.7 mg/dL (0.6-1.4); GLOM FILT RATE Estimated 112.3 mL/min (>60); POTASSIUM 3.5 mmol/L (3.5-5.1); PROTEIN TOTAL SERUM 6.7 g/dL (6.0-8.3)
[2016-12-24 04:06] LABS: HEMOGLOBIN 12.8 gm/dL (12.0-16.0); MEAN CELL VOLUME 86.5 FL (83-96); MEAN CORPUSCULAR HEMOGLOBIN 28.4 PG (28-34); MEAN CORPUSCULAR HGB CONC 32.8 g/dL (30-36); MEAN PLATELET VOLUME 8.8 FL (6.5-11.5); RED BLOOD COUNT 4.5 X10e (3.90-5.30); RED CELL DISTRIBUTION WIDTH 14.5 % (11.0-15.5); WHITE BLOOD COUNT 12.8 X10e3 (4.0-10.5)
[2016-12-24 04:30] LABS: ALBUMIN SERUM 3.8 g/dL (3.5-5.0); BILIRUBIN,TOTAL 1.2 mg/dL (0.2-2.0); CALCIUM SERUM 8.8 mg/dL (8.4-10.2); CREATININE SERUM 0.6 mg/dL (0.6-1.4); GLOM FILT RATE Estimated 118.1 mL/min (>60); POTASSIUM 3.9 mmol/L (3.5-5.1); PROTEIN TOTAL SERUM 7.2 g/dL (6.0-8.3)
== END 2016-12-24 08:07 | disposition home or self-care (01) | DRG 418 ==
LOC: CED 17:37 → CEDOF 20:45 → C4C 12-22 08:00
PROVIDERS: Emergency Medicine; Surgery
PROC: 0FT44ZZ Resection of Gallbladder, Percutaneous Endoscopic Approach (ICD-10-PCS; principal; 2016-12-21)
DX: K80.10 Calculus of gallbladder with chronic cholecystitis without obstruction (principal); F11.20 Opioid dependence, uncomplicated; I10 Essential (primary) hypertension; F43.10 Post-traumatic stress disorder, unspecified; Z88.1 Allergy status to other antibiotic agents; Z88.2 Allergy status to sulfonamides; F17.210 Nicotine dependence, cigarettes, uncomplicated; G40.909 Epilepsy, unspecified, not intractable, without status epilepticus; F31.9 Bipolar disorder, unspecified; F41.9 Anxiety disorder, unspecified; G43.909 Migraine, unspecified, not intractable, without status migrainosus
CPT/HCPCS: 36415; 74177; 78226; 80048; 80053; 80061; 80076; 81003; 83036; 83605; 83690; 84703; 85025; 85027; 87086; 88304; 96361; 96374; 96375; 99285; A9537; J0131; J0330; J0690; J1100; J1170; J1644; J1885; J1956; J2250; J2270; J2405; J2550; J3010; Q9967

== ENCOUNTER 2017-04-26 15:12 | Emergency (ER) | payer OTHER ==
[~2017-04-26] VITALS: Ht 154.9 cm; Wt 65.8 kg
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
== END 2017-04-26 17:25 | disposition home or self-care (01) ==
LOC: CED 15:12 → CFTX 15:12
DX: S33.5XXA Sprain of ligaments of lumbar spine, initial encounter (principal); S23.3XXA Sprain of ligaments of thoracic spine, initial encounter; S40.012A Contusion of left shoulder, initial encounter; S70.02XA Contusion of left hip, initial encounter; I10 Essential (primary) hypertension; F43.10 Post-traumatic stress disorder, unspecified; F31.9 Bipolar disorder, unspecified; F19.10 Other psychoactive substance abuse, uncomplicated; Z88.2 Allergy status to sulfonamides; Z79.899 Other long term (current) drug therapy; V43.62XA Car passenger injured in collision with other type car in traffic accident, initial encounter
CPT/HCPCS: 72072; 72100; 73030; 73502; 99284